=== PATIENT | female | born 1980 | race Caucasian/White ===

== ENCOUNTER 2022-01-02 08:19 | Inpatient (IN) | payer OTHER ==
[~2022-01-02] VITALS: Ht 170.2 cm; Wt 65.8 kg
== END 2022-01-06 14:44 | disposition home or self-care (01) | DRG 201 ==
LOC: ER 08:19 → ICU-2 13:15 → O/R 13:15 → SEC-K 14:44 → O/R 15:45 → SURH 01-03 14:03
PROVIDERS: Surgery; ADMIT Internal Medicine; ATTEND Internal Medicine
PROC: BB24ZZZ Computerized Tomography (CT Scan) of Bilateral Lungs (ICD-10-PCS; 2022-01-02)
PROC: B246YZZ Ultrasonography of Right and Left Heart using Other Contrast (ICD-10-PCS; 2022-01-02)
PROC: 0W9B30Z Drainage of Left Pleural Cavity with Drainage Device, Percutaneous Approach (ICD-10-PCS; principal; 2022-01-02 14:00)
PROC: 4A12X4Z Monitoring of Cardiac Electrical Activity, External Approach (ICD-10-PCS; 2022-01-03)
DX: J93.83 Other pneumothorax (principal); R09.02 Hypoxemia; Z20.822 Contact with and (suspected) exposure to COVID-19

== ENCOUNTER → 2022-02-02 08:25 | Outpatient (CLI) | payer OTHER | END | disposition home or self-care (01) | LOC: TOM 08:25 | DX: J93.9 Pneumothorax, unspecified (principal) ==